=== PATIENT | female | born 1965 | race Caucasian/White ===

== ENCOUNTER 2018-02-20 16:35 | Outpatient (REF) | payer OTHER, SELFPAY ==
[2018-02-20 18:56] LABS: Anion Gap 10.2 mmol/L (3-11); BUN 17 mg/dL (7-18); CO2 27.8 mmol/L (21.0-32.0); CREATININE 0.84 mg/dL (0.55-1.02); Calcium 9.9 mg/dL (8.5-10.1); Chloride 101 mmol/L (98-107); Glucose 89 mg/dL (70-100); Potassium 3.6 mmol/L (3.5-5.1); Sodium 139 mmol/L (136-145); TSH (W/Ref FT4) 5.03 uIU/mL (0.358-3.74)
[2018-02-20 19:07] LABS: Cholesterol 221 mg/dL (50-200); HDL Cholesterol 89 mg/dL (40-60); LDL CHOLESTEROL 120 mg/dL (<100); Triglyceride 33 mg/dL (30-150)
[2018-02-20 19:51] LABS: FREE T4 1.26 ng/dL (0.76-1.46)
== END 2018-02-20 16:55 ==
LOC: LBN 16:35
PROVIDERS: PCP Internal Medicine; Visit Provider Internal Medicine
DX: I10 Essential (primary) hypertension (principal); E03.9 Hypothyroidism, unspecified
CPT/HCPCS: 80048; 80061; 83721; 84439; 84443

== ENCOUNTER 2020-02-03 02:40 | Outpatient (CLI) | payer OTHER, SELFPAY ==
[2020-02-03 08:27] LABS: Anion Gap 6.5 mmol/L (3-11); BUN 13 mg/dL (7-18); CO2 30.5 mmol/L (21.0-32.0); CREATININE 0.83 mg/dL (0.55-1.02); Calcium 8.9 mg/dL (8.5-10.1); Calculated LDL 88 mg/dL (<100); Chloride 104 mmol/L (98-107); Cholesterol 166 mg/dL (<200); Glucose 105 mg/dL (74-106); HDL Cholesterol 72 mg/dL (40-60); Sodium 141 mmol/L (136-145); TSH (W/Ref FT4) 0.14 uIU/mL (0.36-3.74); Triglyceride 30 mg/dL (<150)
[2020-02-03 08:50] LABS: FREE T4 1.76 ng/dL (0.76-1.46)
== END 2020-02-03 03:00 ==
PROVIDERS: PCP Internal Medicine; Visit Provider Internal Medicine
DX: E03.9 Hypothyroidism, unspecified (principal); I10 Essential (primary) hypertension
CPT/HCPCS: 36415; 80048; 80061; 84439; 84443

== ENCOUNTER 2020-02-17 01:44 | Outpatient (CLI) | payer OTHER, SELFPAY ==
--- NOTE | 2020-02-17 06:45 | DI.MAMMO_ITS ---
EXAM: MAMMO SCREENING CLINICAL HISTORY: screening,z12.39 TECHNIQUE: Mammograms were interpreted according to the usual protocol including computer analysis w [employer] CAD system, tomosynthesis and C-view imaging. COMPARISON: 2010 and 2013. FINDINGS: The breasts are composed of scattered fibroglandular densities, Breast Density category B. No suspicious masses or suspicious microcalcifications are seen. No skin thickening or abnormal axillary lymph nodes are seen. There has been no significant change from prior exams. IMPRESSION: BI-RADS Category 1, Negative mammogram Yearly screening mammography is recommended. Breast Density - Category B, scattered fibroglandular densities. A negative radiographic report should not delay biopsy if a dominant or clinically suspicious mass is present. Up to ten percent of cancers are not identified on mammography. A negative report may reinforce clinical impression. Adenosis and dense breasts may obscure an underlying neoplasm. False positive reports average 6 to 10%. Patient will receive a letter notifying them of these results.
== END 2020-02-17 02:04 ==
PROVIDERS: PCP Internal Medicine; Visit Provider Internal Medicine
DX: Z12.31 Encounter for screening mammogram for malignant neoplasm of breast (principal)
CPT/HCPCS: 77063; 77067

== ENCOUNTER 2021-03-09 08:59 | Outpatient (REF) | payer OTHER, SELFPAY ==
[2021-03-09 16:36] LABS: Anion Gap 8.4 mmol/L (3-11); BUN 14 mg/dL (7-18); CO2 27.6 mmol/L (21.0-32.0); CREATININE 0.8 mg/dL (0.55-1.02); Calcium 8.9 mg/dL (8.5-10.1); Chloride 103 mmol/L (98-107); Glucose 102 mg/dL (74-106); Potassium 3.6 mmol/L (3.5-5.1); Sodium 139 mmol/L (136-145); TSH (W/Ref FT4) 5.32 uIU/mL (0.36-3.74)
[2021-03-09 17:06] LABS: FREE T4 1.09 ng/dL (0.76-1.46)
== END 2021-03-09 09:00 | disposition home or self-care (01) ==
LOC: LBN 08:59
PROVIDERS: PCP Internal Medicine; Visit Provider Internal Medicine
DX: I10 Essential (primary) hypertension (principal); E03.9 Hypothyroidism, unspecified
CPT/HCPCS: 80048; 84439; 84443

== ENCOUNTER 2021-03-18 17:33 | Outpatient (REF) | payer OTHER, SELFPAY ==
[2021-03-20 12:40] LABS: COVID-19 RT-PCR UVMMC Result Negative (Negative)
== END 2021-03-18 17:34 | disposition home or self-care (01) ==
LOC: LBN 17:33
PROVIDERS: PCP Internal Medicine; Visit Provider Physician Assistant Medical
DX: Z20.822 Contact with and (suspected) exposure to COVID-19 (principal); R09.89 Other specified symptoms and signs involving the circulatory and respiratory systems
CPT/HCPCS: U0003

== ENCOUNTER 2022-05-24 02:19 | Outpatient (CLI) | payer OTHER, SELFPAY ==
[2022-05-24 10:53] LABS: HCT 40.4 % (36.0-46.0); HGB 13.1 g/dL (11.2-15.7); MCH 28.8 pg (27.0-33.0); MCHC 32.4 % (32.0-36.0); MCV 89 fL (80-95); MPV 8.7 fL (8.0-11.0); Platelet Count 524 10^3/uL (130-400); RBC 4.55 10^6/uL (3.93-5.22); RDW 13.8 % (11.7-14.6); RDW-SD 44.8 fL; WBC 8.27 10^3/uL (4.4-10.8)
[2022-05-24 11:03] LABS: Hemoglobin A1C 5.6 % (<5.7)
[2022-05-24 11:45] LABS: ALT 36 U/L (14-59); AST 19 U/L (15-37); Albumin 3.7 g/dL (3.4-5.0); Alkaline Phosphatase 114 U/L (46-116); Anion Gap 8.2 mmol/L (3-11); BUN 11 mg/dL (7-18); Bilirubin, Total 0.6 mg/dL (0.2-1.0); CO2 29.8 mmol/L (21.0-32.0); CREATININE 0.9 mg/dL (0.55-1.02); Calcium 9.7 mg/dL (8.5-10.1); Calculated LDL 110 mg/dL (<100); Chloride 102 mmol/L (98-107); Cholesterol 204 mg/dL (<200); Estimated GFR 75.03 (mL/min/1.73m2); Glucose 102 mg/dL (74-106); HDL Cholesterol 84 mg/dL (40-60); Potassium 3.7 mmol/L (3.5-5.1); Sodium 140 mmol/L (136-145); TSH (W/Ref FT4) 13.41 uIU/mL (0.36-3.74); Total Protein 8.1 g/dL (6.4-8.2); Triglyceride 52 mg/dL (<150)
[2022-05-24 12:05] LABS: FREE T4 1.16 ng/dL (0.76-1.46)
== END 2022-05-24 02:20 | disposition home or self-care (01) ==
LOC: LBO 02:19
PROVIDERS: PCP Nurse Practitioner; Referring Provider Nurse Practitioner; Visit Provider Nurse Practitioner
DX: E03.9 Hypothyroidism, unspecified (principal); E66.9 Obesity, unspecified; I10 Essential (primary) hypertension
CPT/HCPCS: 36415; 80053; 80061; 85027; 83036; 84439; 84443

== ENCOUNTER 2022-05-24 14:19 | Emergency (ER) | payer OTHER, SELFPAY ==
[2022-05-24 14:51] VITALS: BP 161/98; PULSE 71; RESP 14; TEMP 36.7; O2SAT 100
--- NOTE | 2022-05-24 16:15 | DI.RAD_ITS ---
Exam(s) XR SHOULDER RT COMPLETE 2+V EXAM: XR SHOULDER RT COMPLETE 2+V CLINICAL HISTORY: fall with hyperextension. TECHNIQUE: 2D digital imaging was performed. COMPARISON: No exams were available for comparison FINDINGS: Five views: There is a nondisplaced fracture of the greater tuberosity. No dislocation of glenohumeral joint. Subacromial space is not diminished. AC joint and ipsilateral clavicle are intact. No adjacent rib fractures. IMPRESSION: There is a fracture of the lateral aspect of the humeral head involving the greater tuberosity. This does not appear to be a displaced fracture at this time. DATA REPOSITORY: RADIATION DOSE DELIVERED:
--- NOTE | 2022-05-24 17:46 | ED.GENADUL_ITS ---
Discharge Plan Disposition Patient Disposition: Home Discharge Details Clinical Impression: Fracture of humeral head, right, closed Primary Care Provider: Yasmin Toscano ED Provider: Rony Manley Home Meds and New Rx's Prescriptions: Continued calcium carbonate [Tums E-X] 300 mg (750 mg) tablet,chewable 300 mg PO BID cimetidine 200 mg tablet 200 mg PO DAILY PRN hydrochlorothiazide 25 mg tablet 25 mg PO DAILY Qty: 90 3RF levothyroxine 125 mcg tablet 125 mcg PO DAILY Qty: 90 3RF lisinopril 20 mg tablet 20 mg PO DAILY Qty: 90 3RF Discharge Instructions Instructions: Arm Fracture in Adults (ED) Additional Instructions: You may continue to use [id number] pain medication as needed for discomfort. If you have any significant or severe worsening of symptoms, numbness or tingling to the hand or dysfunction of the hand please return immediately to the emergency department for reassessment. Otherwise leave sling in place. You may apply ice to your shoulder to help with swelling and discomfort. Please do not apply ice for greater than 20 minutes at 1 time. It is very important that you follow-up with orthopedics for reassessment and further evaluation of your injury. Stand Alone Forms: Work Release Referrals: [facility] [Provider Group] (Please call the office tomorrow afternoon for arrangement of your follow-up appointment.) Discharge Data Discharge Date/Time-TO BE ENTERED AT DEPARTURE: 05/24/22 18:36 Medical Decision Making Patient presenting to the emergency department chief complaint of fall with right shoulder injury. She states that during the fall she attempted to grab a door handle when she slipped and her arm was significantly extended overhead. Since then she has been unable to abduct her shoulder in any form or fashion. Denies any loss of sensation, numbness or tingling, and states full movement range of motion of wrist and elbow. Physical exam shows tenderness to the proximal humerus more on the lateral aspects with significant and severe pain with range of motion. We will perform radiological imaging. Patient states while at rest arm is comfortable and denies any need for pain medication prior to results. Review of radiological imaging shows a humeral head fracture without displacement or dislocation. Patient placed in a sling and on Ortho follow-up list. Discussed use of limited narcotic with patient and she states that she would prefer just use [id number] medications. After discussion of diagnosis and plan of care patient has no further needs, questions, or concerns and states clear understanding to return to the emergency department for any worsening symptoms. This documentation was generated using [employer] system, please disregard any oddities of phrase or misspellings. Imaging Data Radiologic Study: Attestation: I personally reviewed and interpreted this imaging study as follows: Imaging: X-Ray Radiologist's impression: Exam(s) XR SHOULDER RT COMPLETE 2+V EXAM: XR SHOULDER RT COMPLETE 2+V CLINICAL HISTORY: fall with hyperextension. TECHNIQUE: 2D digital imaging was performed. COMPARISON: No exams were available for comparison FINDINGS: Five views: There is a nondisplaced fracture of the greater tuberosity. No dislocation of glenohumeral joint. Subacromial space is not diminished. AC joint and ipsilateral clavicle are intact. No adjacent rib fractures. IMPRESSION: There is a fracture of the lateral aspect of the humeral head involving the greater tuberosity. This does not appear to be a displaced fracture at this time. [facility] General Mode of arrival: ambulatory . Date/Time Provider Initiated Documentation: 05/24/22 15:53 . Limitations to Documentation: no limitations . Information obtained by: patient . History of Present Illness 56 year old F presents to the emergency department with the chief complaint of Right shoulder injury, described as moderate, with intensity rated at 3. Quality is described as aching, and is localized to the right and upper extremity. Patient reports no radiation. Patient started experiencing this hour(s) (1) and it has been constant. Immobilization improves symptom(s), Movement worsens symptoms . Patient notes no other symptoms.. Patient did receive the following treatments prior to arrival, NSAID Related Data Home Medications Medication Instructions Recorded Confirmed calcium carbonate 300 mg (750 mg) 300 mg PO BID 02/20/18 05/24/22 chewable tablet (Tums E-X) cimetidine 200 mg tablet 200 mg PO DAILY PRN 06/04/19 05/24/22 hydrochlorothiazide 25 mg tablet 25 mg PO DAILY #90 tabs 05/16/22 05/24/22 levothyroxine 125 mcg tablet 125 mcg PO DAILY #90 tabs 05/16/22 05/24/22 lisinopril 20 mg tablet 20 mg PO DAILY #90 tab-caps 05/16/22 05/24/22 Previous Rx's Medication Instructions Recorded hydrochlorothiazide 25 mg tablet 25 mg PO DAILY #90 tabs 05/16/22 levothyroxine 125 mcg tablet 125 mcg PO DAILY #90 tabs 05/16/22 lisinopril 20 mg tablet 20 mg PO DAILY #90 tab-caps 05/16/22 Allergies Allergy/AdvReac Type Severity Reaction Status Date / Time No Known Allergies Allergy Verified 05/16/22 11:22 General Stated Complaint: Orthopedic ANTOLIN: 4 Review of Systems Narrative: 6 systems reviewed and unremarkable except what is marked below. Cardiovascular Cardiovascular: Denies chest pain and Denies syncope Musculoskeletal Musculoskeletal: Reports as per HPI, Denies deformity, Reports arthralgias, Reports limited range of motion, Denies numbness, Denies radiating pain into limb and Denies tingling Neurologic Neurologic: Denies syncope, Denies numbness and Denies tingling PFSH All Active Problems Fracture of humeral head, right, closed (Acute) Palpitations (Acute) GERD (gastroesophageal reflux disease) (Chronic) Obstructive sleep apnea (adult) (pediatric) (Chronic 05/08/13) gwyn O2 sat 79% but no consecutive 5 min <88%; overall mild but very severe in REM sleep Neurocardiogenic syncope (Acute 04/15/13) Hypothyroidism (Chronic 12/11/12) Essential hypertension (Chronic 12/11/12) <1% 10YR CVD risk; do not push BP lower due to syncope Body mass index (BMI) 40.0-44.9, adult (Chronic 05/24/16) Medical History Fracture, fibula (05/08/13) Surgical History Appendectomy Ligation of fallopian tube Tonsillectomy and adenoidectomy Family History Mother Age: 79 Hyperlipidemia Father Age: 79 Hypertensive disorder, systemic arterial Social History Smoking/Tobacco Use Status: Never Smoking risk assessment performed?: Yes Alcohol Intake: current Alcohol Intake frequency: holidays/special occasions only Drug use: Never Substance use type: does not use Household members: spouse Housing: house Number of Children: 1 number of grandchildren: 2 Communication Needs: None Education Level: vocational Do you need help understanding health information?: Never current occupation: works at the [employer] Current gender identity: female What is your relationship status?: Panel score (0-1 are the most socially isolated patients): 1 What type of physical activity do you participate in: walking Duration: 15-30 minutes/day Frequency: 1-2 times per week Seatbelt use: always Drive intox or ride w/intox miniature train driver: No Working smoke detector in home: Yes Fire extinguisher in home: Yes Carbon monox detector in home: Yes Do you feel safe at home: Yes Do you feel safe in your relationship?: Yes Exam Const General: cooperative, no acute distress and not ill appearing Orientation: alert, awake and oriented x3 HENMT Mouth: moist mucous membranes Resp Effort & Inspection: normal respiratory effort, able to speak in complete sentences and no respiratory distress Cardio Rate: regular rate Rhythm: regular rhythm Pulses: normal peripheral pulses Skin General skin exam: no rashes or lesions noted Neuro General: patient alert, patient awake, patient oriented x3, moves all extre mities and no focal motor deficits Sensory Exam: no sensory deficits noted Extrem Right upper extremity: shoulder/upper arm Details: normal to inspection, tenderness Location: of the proximal humerus and over the deltoid bursa; not of the clavicle and not of the A-C joint, axillary nerve sensory function normal and abnormal ROM Details: held in an abnormal fashion Details: in ADduction and in internal rotation, pain with active ROM, pain with passive ROM and with range as follows (No abduction without severe pain); no ecchymosis and no crepitus Course Vital Signs Vital signs: Vital Signs Temperature 36.7 C 05/24/22 14:51 Pulse 71 05/24/22 14:51 Respiratory Rate 14 05/24/22 14:51 Blood Pressure 161/98 H 05/24/22 14:51 Pulse Oximetry 100 05/24/22 14:51 Temperature 36.7 C 05/24/22 14:51 Temperature Source Oral 05/24/22 14:51 Pulse 71 05/24/22 14:51 Respiratory Rate 14 05/24/22 14:51 Respiratory Effort Normal, Non-Labored 05/24/22 15:38 Blood Pressure 161/98 H 05/24/22 14:51 Blood Pressure Position Sitting 05/24/22 14:51 Pulse Oximetry 100 05/24/22 14:51 Oxygen Delivery Method Room Air 05/24/22 14:51 Oxygen Flow Rate 0 05/24/22 14:51 Pain Level 3 05/24/22 14:51 Comment 3/10 at rest, 9/10 with movement 05/24/22 14:51
[2022-05-24 18:32] VITALS: BP 163/94; PULSE 71; RESP 16; TEMP 36.7; O2SAT 96
== END 2022-05-24 18:36 | disposition home or self-care (01) ==
PROVIDERS: Emergency Provider Nurse Practitioner Family; PCP Nurse Practitioner
DX: S42.201A Unspecified fracture of upper end of right humerus, initial encounter for closed fracture (principal); W01.0XXA Fall on same level from slipping, tripping and stumbling without subsequent striking against object, initial encounter
CPT/HCPCS: 99283; 73030; 99282

== ENCOUNTER 2022-06-01 03:01 | Outpatient (CLI) | payer OTHER, SELFPAY ==
[2022-06-01 16:59] LABS: Abs Immature Grans 0.09 10^3/uL (0.0-0.06); Absolute Basophil Count 0.08 10^3/uL (0.0-0.2); Absolute Eosinophil Count 0.29 10^3/uL (0.0-0.7); Absolute Lymphocyte Count 2.79 10^3/uL (1.2-3.4); Absolute Monocyte Count 0.77 10^3/uL (0.1-0.8); Absolute Neutrophil Count 6.21 10^3/uL (1.2-6.7); Basophils % 0.8; Eosinophils % 2.8; HGB 13.1 g/dL (11.2-15.7); Immature Grans % 0.9; Lymphocytes % 27.3; MCH 28.9 pg (27.0-33.0); MCHC 32.8 % (32.0-36.0); MCV 88 fL (80-95); MPV 8.8 fL (8.0-11.0); Monocytes % 7.5; Neutrophils % 60.7; Platelet Count 439 10^3/uL (130-400); RBC 4.54 10^6/uL (3.93-5.22); RDW 13.5 % (11.7-14.6); RDW-SD 43.7 fL; WBC 10.23 10^3/uL (4.4-10.8)
[2022-06-01 17:06] LABS: ESR 27 mm/hr (0-30)
[2022-06-01 17:41] LABS: Total Iron Binding Capacity 346 ug/dL (250-450)
[2022-06-01 17:54] LABS: Ferritin 90 ng/mL (8-252)
== END 2022-06-01 03:02 | disposition home or self-care (01) ==
LOC: LBO 03:02
PROVIDERS: PCP Nurse Practitioner; Visit Provider Nurse Practitioner
DX: R79.89 Other specified abnormal findings of blood chemistry (principal)
CPT/HCPCS: 36415; 85652; 82728; 83550; 85025

== ENCOUNTER 2022-06-15 14:58 | Outpatient (CLI) | payer OTHER, SELFPAY ==
--- NOTE | 2022-06-15 14:15 | DI.RAD_ITS ---
Exam(s) XR SHOULDER RT COMPLETE 2+V EXAM: XR SHOULDER RT COMPLETE 2+V CLINICAL HISTORY: RIGHT HUMERAL HEAD FX F/U. TECHNIQUE: 2D digital imaging was performed of the right shoulder. Two images were obtained. AP an d axillary views were obtained. COMPARISON: CR XR SHOULDER RT COMPLETE 2+V from 05/24/2022 FINDINGS: BONES: There has been no change in alignment of the nondisplaced fracture involving the greater tuber osity. There is evidence of healing. No new fracture is seen. No bony destructive lesion is seen. JOINTS: No dislocation present. SOFT TISSUE: Normal. IMPRESSION: Healing greater tuberosity fracture. DATA REPOSITORY: RADIATION DOSE DELIVERED:
== END 2022-06-15 14:59 | disposition home or self-care (01) ==
LOC: DIORS 14:59
PROVIDERS: PCP Nurse Practitioner; Referring Provider Nurse Practitioner; Visit Provider Student in an Organized Health Care Education/Training Program
DX: S42.254D Nondisplaced fracture of greater tuberosity of right humerus, subsequent encounter for fracture with routine healing; X58.XXXD Exposure to other specified factors, subsequent encounter
CPT/HCPCS: 73030

== ENCOUNTER 2022-07-12 15:06 | Outpatient (CLI) | payer OTHER, SELFPAY ==
--- NOTE | 2022-07-12 15:00 | DI.RAD_ITS ---
Exam(s) XR SHOULDER RT COMPLETE 2+V EXAM: XR SHOULDER RT COMPLETE 2+V CLINICAL HISTORY: RIGHT SHOULDER F/U. TECHNIQUE: 2D digital imaging was performed of the right shoulder. Two images were obtained. AP an d Y views were obtained. COMPARISON: CR XR SHOULDER RT COMPLETE 2+V from 06/15/2022 FINDINGS: BONES: There has been no change in alignment of the fracture involving the greater tuberosity. The f racture line is less well visualized suggesting some interval healing. No new fractures identified. No bony destructive lesion is seen. JOINTS: No dislocation present. SOFT TISSUE: Normal. IMPRESSION: Stable healing right humeral fracture. DATA REPOSITORY: RADIATION DOSE DELIVERED:
== END 2022-07-12 15:07 | disposition home or self-care (01) ==
LOC: DIORS 15:07
PROVIDERS: PCP Nurse Practitioner; Referring Provider Nurse Practitioner; Visit Provider Student in an Organized Health Care Education/Training Program
DX: S42.254D Nondisplaced fracture of greater tuberosity of right humerus, subsequent encounter for fracture with routine healing; X58.XXXD Exposure to other specified factors, subsequent encounter
CPT/HCPCS: 73030

== ENCOUNTER 2023-05-15 05:03 | Outpatient (CLI) | payer OTHER, SELFPAY ==
[2023-05-15 10:38] LABS: Abs Immature Grans 0.19 10^3/uL (0.0-0.06); Absolute Basophil Count 0.09 10^3/uL (0.0-0.2); Absolute Eosinophil Count 0.33 10^3/uL (0.0-0.7); Absolute Lymphocyte Count 2.86 10^3/uL (1.2-3.4); Absolute Monocyte Count 0.81 10^3/uL (0.1-0.8); Absolute Neutrophil Count 5.49 10^3/uL (1.2-6.7); Basophils % 0.9; Eosinophils % 3.4; HCT 39.9 % (36.0-46.0); HGB 13.5 g/dL (11.2-15.7); Immature Grans % 1.9; Lymphocytes % 29.3; MCH 29.6 pg (27.0-33.0); MCHC 33.8 % (32.0-36.0); MCV 88 fL (80-95); MPV 8.7 fL (8.0-11.0); Monocytes % 8.3; Neutrophils % 56.2; Platelet Count 498 10^3/uL (130-400); RBC 4.56 10^6/uL (3.93-5.22); RDW 13.6 % (11.7-14.6); RDW-SD 43.7 fL; WBC 9.77 10^3/uL (4.4-10.8)
[2023-05-15 11:29] LABS: C-Reactive Protein 0.57 mg/dL (<or=0.5); TSH (W/Ref FT4) 4.33 uIU/mL (0.36-3.74)
[2023-05-15 11:46] LABS: FREE T4 1.24 ng/dL (0.76-1.46)
== END 2023-05-15 05:04 | disposition home or self-care (01) ==
LOC: LBO 05:03
PROVIDERS: Absent Provider Nurse Practitioner; PCP Nurse Practitioner; Visit Provider Nurse Practitioner
DX: E03.9 Hypothyroidism, unspecified (principal); R79.89 Other specified abnormal findings of blood chemistry
CPT/HCPCS: 36415; 84439; 84443; 85025; 86140

== ENCOUNTER → 2023-07-06 03:18 | Outpatient (CLI) | payer OTHER, SELFPAY ==
--- NOTE | 2023-07-06 08:15 | DI.MAMMO_ITS ---
Exam(s) MAMMO SCREENING EXAM: MAMMO SCREENING CLINICAL HISTORY: screening,z12.39 TECHNIQUE: Bilateral full field digital CC and MLO mammographic images were obtained with 3D tomosyn thesis and utilizing computer aided detection (CAD). COMPARISON: Available for comparison. FINDINGS: Masses/Architectural Distortion: None seen. Microcalcifications: No suspicious pleomorphic-type are seen. Skin Thickening/Nipple Retraction: None. IMPRESSION: 1. No significant interval change with no specific features of malignancy noted. 2. Unless there is more urgent need, screening mammography is recommended, as per [employer] guidelines. BI-RADS Category 1 - Negative Breast Density - Category B - Scattered areas of fibroglandular density Breast density category C or D implies that the patient has dense breast tissue. Dense breast tissue is very common and is not abnormal but dense breast tissue can make it harder to find cancer on a ma mmogram. Also, dense breast tissue may increase their breast cancer risk. This information about the result of the mammogram report was provided to the patient to raise their awareness. Use this report when you speak with the patient about their risks for breast cancer, which includes their family hist ory. At that time, you may recommend for more screening tests (Ultrasound or MRI) as they might be us eful based on their risk. A negative radiographic report should not delay biopsy if a dominant or clinically suspicious mass is present. Up to ten percent of cancers are not identified on mammography. A negative report may reinforce clinical impression. Adenosis and dense breasts may obscure an underlying neoplasm. False positive reports average 6 to 10%. Patient will receive a letter notifying them of these results.
== END ==
PROVIDERS: PCP Nurse Practitioner; Visit Provider Nurse Practitioner
DX: Z12.31 Encounter for screening mammogram for malignant neoplasm of breast (principal)
CPT/HCPCS: 77063; 77067

== ENCOUNTER 2024-10-21 03:04 | Outpatient (CLI) | payer BC, SELFPAY ==
[2024-10-21 07:17] LABS: Abs Immature Grans 0.09 10^3/uL (0.0-0.06); HCT 39.8 % (36.0-46.0); HGB 12.8 g/dL (11.2-15.7); Immature Grans % 1.2 %; MCH 28.4 pg (27.0-33.0); MCHC 32.2 % (32.0-36.0); MCV 88 fL (80-95); MPV 8.8 fL (8.0-11.0); Platelet Count 447 10^3/uL (130-400); RBC 4.51 10^6/uL (3.93-5.22); RDW 14.3 % (11.7-14.6); RDW-SD 45.9 fL; WBC 7.82 10^3/uL (4.4-10.8)
[2024-10-21 07:26] LABS: Glucose Negative (Negative)
[2024-10-21 07:36] LABS: C & S Indicated? No; RBC Negative HPF (0-2); WBC 0-2 HPF (0-5)
[2024-10-21 07:56] LABS: Hemoglobin A1C 5.5 % (<5.7)
[2024-10-21 08:39] LABS: ALT 37 U/L (14-59); AST 23 U/L (15-37); Albumin 3.6 g/dL (3.4-5.0); Alkaline Phosphatase 113 U/L (46-116); Anion Gap 7.7 mmol/L (3-11); BUN 13 mg/dL (7-18); Bilirubin, Total 0.7 mg/dL (0.2-1.0); CO2 29.3 mmol/L (21.0-32.0); Calcium 9.1 mg/dL (8.5-10.1); Calculated LDL 92 mg/dL (<100); Chloride 105 mmol/L (98-107); Cholesterol 175 mg/dL (<200); Estimated GFR 64.90 (mL/min/1.73m2); Glucose 117 mg/dL (74-106); HDL Cholesterol 74 mg/dL (>or=50); Potassium 3.7 mmol/L (3.5-5.1); Sodium 142 mmol/L (136-145); TSH 4.06 uIU/mL (0.36-3.74); Total Protein 7.8 g/dL (6.4-8.2); Triglyceride 46 mg/dL (<150)
== END 2024-10-21 03:05 | disposition home or self-care (01) ==
PROVIDERS: PCP Nurse Practitioner; Visit Provider Family Medicine
DX: R53.83 Other fatigue (principal); Z13.9 Encounter for screening, unspecified
CPT/HCPCS: 36415; 80053; 80061; 81003; 81015; 83036; 84443; 85025